=== PATIENT | male | born 1965 | race Caucasian/White ===

== ENCOUNTER 2022-06-01 06:31 | Day surgery (SDC) | payer OTHER, SELFPAY ==
[2022-06-01] VITALS (17 sets, daily range): BP systolic 112–155; BP diastolic 66–107; PULSE 50–72; RESP 16; TEMP 36.1–36.6; O2SAT 95–99; BMI 28.6
[2022-06-01] MEDS: LACTATED RINGERS 1000 ML 1,000 ML 100 ML IV (07:00)
[2022-06-01] MEDS: SODIUM CHLORIDE 0.9 % (FLUSH) 10 ML SYRINGE IVF (07:00)
[2022-06-01] MEDS: CEFAZOLIN 2 GM INJ IVP (08:05)
--- NOTE | 2022-06-01 09:05 | W.PM.NB ---
Nerve Block Nerve Block Time Seen by Provider: 09:00 Date Seen: 06/01/22 Type of block requested by surgeon for post-operative analgesia: geniculars Side: left Time out performed: Yes Verification of patient name: Yes Verification of date of : Yes Site marking: site marked Name of person performing procedure: LUIS Zapata Continuous monitoring Was continuous monitoring of O2 sat, B/P, route delivery supervisor, recorded every 15 minutes?: Yes Procedure Checklist: sterile prep, needles and gloves Ultrasound guided. Images saved: No Medications given in 5ml increments after negative aspiration: Ropivicaine %: 0.5 mL: 10 Needle gauge: 24 Patient tolerated procedure well: Yes Block Charges Block Charge (with Pro Fee): Genicular Nerve Block Use of Ultrasound Machine for Block: No
--- NOTE | 2022-06-01 09:12 | W.ANESCHARGE ---
Anesthesia Charges Start Date/Time Anesthesia Start Date: 06/01/22 Anesthesia Start Time: 07:55 Stop Date/Time Anesthesia Stop Date: 06/01/22 Anesthesia Stop Time: 09:17 Summary Emergency: No
--- NOTE | 2022-06-01 09:14 | PM.ORPRC ---
Procedure Note Date of procedure: 06/01/22 Procedure: SURGEON: Neil Plummer MD [employer] PROFESSOR: MAURISIO Mohr PREOPERATIVE DIAGNOSIS: Left knee lateral meniscus root tear POSTOPERATIVE DIAGNOSIS: Left knee lateral meniscus root tear NAME OF OPERATION: Left knee arthroscopic lateral meniscus root repair ANESTHESIA: Spinal ESTIMATED BLOOD LOSS: 0 mL COMPLICATIONS: None SPECIMENS: None DRAINS: None PREOPERATIVE ANTIBIOTICS: Ancef 1 gram INDICATIONS: The patient is a 56-year-old male with a history of left knee lateral pain. MRI scan is consistent with a lateral meniscus root tear. Despite appropriate nonoperative management, including activity modification, antiinflammatories, [id number] pain medication, bracing, physical therapy, and injections they continue to have pain and disability. Operative intervention was offered. The risks, benefits and expected outcomes were discussed in detail. These included but were not limited to: Infection, bleeding, injury to blood vessel or nerve, venous thromboembolism. All questions were answered to their satisfaction. PROCEDURE: Spinal anesthesia was administered. The patient was placed supine on the operating room table. The left lower extremity was prepped and draped in the usual sterile fashion. The limb was exsanguinated with the J Luis bandage. The pneumatic tourniquet was inflated to 300 mmHg. A standard anterolateral portal was established. The arthroscope was introduced. The working portal was established anteromedially. Diagnostic arthroscopy was performed with findings as follows: The suprapatellar pouch is normal. Articular surface on the patella shows diffuse grade 2/3 change. Articular surface on the trochlea shows a tiny focal area of grade 3 change. The medial gutter is normal. The medial compartment shows normal articular cartilage on the medial femoral condyle and medial tibial plateau. The medial meniscus is normal. The notch shows the ACL to be intact. The lateral compartment shows diffuse grade 2/3 change on the lateral femoral condyle and lateral tibial plateau. The lateral meniscus has a radial tear from the leading edge, to the capsule at the posterior horn, detaching it from the tibia. The lateral gutter has many articular cartilage fragments adherent to the lateral synovium. There are 2, free floating pieces of articular cartilage in the knee. The posterior horn of the lateral meniscus was debrided to a stable base using a shaver. Unstable chondral flaps on the lateral femoral condyle, lateral tibial plateau, and patella were debrided with the shaver through both portals, taken to a stable base. The loose bodies in the knee were debrided. Likewise the adherent pieces of articular cartilage in the lateral gutter were debrided with the shaver. The knee scorpion was used to pass a fiber link x 2 in the posterior horn of the lateral meniscus. The tibial drill guide was used over the footprint of the root. A longitudinal incision over the anteromedial face of the tibia was placed. The flip cutter was drilled into the footprint.For The flip cutter was flipped and back cut 5 mm. It was removed and exchanged for a fiber stick. The fiber stick was brought out the anteromedial portal and was used to shuttle both of the fiber link luggage tag sutures on the posterior horn out the anteromedial tibia. We then tensioned the sutures and fixed them to the tibia with a SwiveLock anchor. This provided an excellent repair of the posterior tibial attachment of the lateral meniscus to its anatomic footprint. The power pick was used to microfracture the notch both medially and laterally. Arthroscopic instruments were removed, the portal sites were Steri-Stripped closed, the incision over the tibia was closed with 3-0 Vicryl and 4-0 Monocryl, the knee was infiltrated with 30 mL of 0.25% Marcaine without epinephrine. A dry dressing was applied, the tourniquet was released. Sponge and needle counts were correct x 2. The patient tolerated the procedure well. There were no apparent complications. They were carefully transferred to the hospital bed and taken to the postanesthesia care unit in satisfactory condition. PLAN: The patient will be discharged to home. They will be strict nonweightbearing on the lower extremity for 6 weeks postoperatively. Range of motion will be allowed from 0-90 degrees x 2 weeks then unrestricted range of motion. They will follow up in 2 weeks for a wound check.
--- NOTE | 2022-06-01 09:16 | W.ANESCHARGE ---
Anesthesia Charges Start Date/Time Anesthesia Start Date: 06/01/22 Anesthesia Start Time: 07:55 Stop Date/Time Anesthesia Stop Date: 06/01/22 Anesthesia Stop Time: 09:17 Summary Emergency: No
[2022-06-01] MEDS: fentaNYL 100 MCG/2 ML inj 50 MCG IVP ×3 (09:37→09:55)
[2022-06-01] MEDS: HYDROCODONE-ACETAMIN 5-325 MG 1 TAB PO ×2 (10:30→10:57)
--- NOTE | 2022-06-01 10:35 | SUR.PHASEII ---
Left knee dressing c/d/i. Ice pack on. Black leg brace on. Elevated on pillows.
--- NOTE | 2022-06-01 11:22 | SUR.PREOP ---
PATIENTS HOME COVID ANTIGEN TEST NEGATIVE ON 05/31/22 @ 2025.
== END 2022-06-01 11:15 | disposition home or self-care (01) ==
PROVIDERS: PCP Family Medicine; Visit Provider Orthopaedic Surgery
PROC: (CPT 29882; principal; 2022-06-01 07:45)
DX: S83.282A Other tear of lateral meniscus, current injury, left knee, initial encounter (principal)
CPT/HCPCS: 29882; 1400; 64454; A9270; C1713; J0690; J1100; J2250; J2400; J2405; J2704; J3010; J7120